=== PATIENT | male | born 1995 | race Caucasian/White ===

== ENCOUNTER 2019-03-01 13:24 | Emergency (ER) | payer BC ==
[~2019-03-01] VITALS: Ht 177.8 cm; Wt 95.5 kg
[2019-03-01 13:34] VITALS: BP 122/74; TEMP 97.6
[2019-03-01] MEDS ORDERED: POLYMYXIN B/TRIMETH OU (14:21)
[2019-03-01 14:49] VITALS: PULSE 82
== END 2019-03-01 14:49 | disposition home or self-care (01) ==
LOC: COL.ER 13:24
DX: H10.9 Unspecified conjunctivitis (principal)